=== PATIENT | male | born 2000 | race Caucasian/White ===

== ENCOUNTER 2019-11-28 20:42 | Emergency (ER) | payer BC ==
[~2019-11-28] VITALS: Ht 193 cm; Wt 142.9 kg
[2019-11-29] MEDS ORDERED: NORCO 5-325 TA1 EACH PO (00:14)
== END 2019-11-29 00:31 | disposition home or self-care (01) ==
LOC: ED 20:42
DX: S02.2XXA Fracture of nasal bones, initial encounter for closed fracture (principal); W19.XXXA Unspecified fall, initial encounter; Y93.61 Activity, american tackle football; Y92.89 Other specified places as the place of occurrence of the external cause; Y99.8 Other external cause status